=== PATIENT | female | born 1985 | race Caucasian/White ===

== ENCOUNTER 2018-03-06 16:00 | Inpatient (IN) ==
[2018-03-06] MEDS ORDERED: Naloxone Inj 0.4 MG/ML Vial IV.PUSH PRN (16:34)
[2018-03-06] MEDS ORDERED: Sod Chloride 0.9% Inj 1,000 ML IV.CONT PRN (16:34)
[2018-03-06] MEDS ORDERED: Sodium Chlor 0.9% Inj 500 ML IV.SIG PRN (16:34)
[2018-03-06] MEDS ORDERED: Oxytocin 30 Units/500ml Premix 30 UNITS/500 ML BAG IV.SIG ONE (16:34)
[2018-03-06] MEDS ORDERED: fentaNYL Citrate Inj 100 MCG/2 ML Ampul IV.PUSH PRN ×2 (16:34)
[2018-03-06] MEDS ORDERED: Citric Acid/Sodium Citrate Liq 30 ML UDC PO SCH (16:45)
[2018-03-06] MEDS ORDERED: Zolpidem Tartrate 5 MG Tablet PO PRN (17:12)
[2018-03-06 17:17] LABS: Baso % (Auto) 0.4 % (0.0-2.0); Eos # (Auto) 0.1 th/mm3 (0.0-0.4); Hematocrit 36.7 % (35.0-46.0); Hemoglobin 13.4 gm/dL (11.6-15.3); Lymph # (Auto) 1.6 th/mm3 (1.0-4.8); Lymph % (Auto) 18.2 % (9.0-44.0); Mean Corpuscular Hemoglobin 32.7 pg (27.0-34.0); Mean Corpuscular Volume 89.4 fL (80.0-100.0); Mean Platelet Volume 8.1 fL (7.0-11.0); Mono # (Auto) 0.6 th/mm3 (0.0-0.9); Mono % (Auto) 7.1 % (0.0-8.0); Neut # (Auto) 6.4 th/mm3 (1.8-7.7); Neut % (Auto) 73.3 % (16.0-70.0); Platelet Count 181 th/mm3 (150-450); Red Blood Count 4.11 mil/mm3 (4.00-5.30); Red Cell Distribution Width 14.5 % (11.6-17.2); White Blood Count 8.7 th/mm3 (4.0-11.0)
[2018-03-06] MEDS ORDERED: Dextrose 50% in Water 50 ML Vial IV.PUSH PRN (17:25)
[2018-03-06 17:28] LABS: Mean Corpuscular HGB Conc 36.6 % (32.0-36.0)
[2018-03-06 18:05] LABS: Amphetamine Urine With Conf Neg (Neg); Benzodiazepine Urine With Conf Neg (Neg); Cocaine Urine With Conf Neg (Neg); Opiates Urine With Conf Neg (Neg)
[2018-03-06 18:08] LABS: Bacteria,Urine Occasional /hpf; Bilirubin,Urine Negative (Negative); Clarity,Urine Hazy (Clear); Color,Urine Yellow (Yellw/Straw); Glucose,Urine (UA) Negative (Negative); Leukocyte Esterase,Urine Negative (Negative); Mucus,Urine Few /lpf (Occasional); Nitrite,Urine Negative (Negative); Specific Gravity,Urine 1.019 (1.002-1.035); Squamous Epithelial Cell,Urine 8 /hpf (0-5)
[2018-03-06 18:21] LABS: Cannabinoid Urine With Conf Neg (Neg)
[2018-03-06 18:33] LABS: Platelet Estimate Normal (Normal); Platelet Morphology Normal (Normal)
[2018-03-06 20:39] LABS: Alanine Aminotransferase 18 U/L (10-53); Albumin 3.1 g/dL (3.4-5.0); Anion Gap 7 meq/L (5-15); Aspartate Aminotransferase 11 U/L (15-37); Blood Urea Nitrogen 10 mg/dL (7-18); Calcium 8.5 mg/dL (8.5-10.1); Carbon Dioxide 23.3 meq/L (21.0-32.0); Chloride 109 meq/L (98-107); Glomerular Filtration Rate Greater Than 89 mL/min (>89); Glucose,Random 86 mg/dL (74-106); Potassium 3.8 meq/L (3.5-5.1); Sodium 139 meq/L (136-145)
[2018-03-06 20:41] LABS: Alkaline Phosphatase 129 U/L (45-117); Total Protein 7.2 g/dL (6.4-8.2)
[2018-03-06] MEDS ORDERED: Melatonin 5 MG Tablet PO ONE (21:00)
[2018-03-07] MEDS: Insulin NovoLIN Regular Correctional Sugar Inj SQ SCH ×5 (03:20→23:49)
[2018-03-07] MEDS ORDERED: Oxytocin 30 Units/500ml Premix 30 UNITS/500 ML BAG IV.SIG PRN (07:38)
--- NOTE | 2018-03-07 08:33 | P.HPOB ---
History of Present Illness Service: labor Primary Care Physician: NOT REQUIRED Chief Complaint: Possible subtle decelerationn in the diagnostic center History of Present Illness: 33-year-old white female at 39+ weeks. She has been getting testing twice weekly because of her diabetes and dependent on insulin. She had a subtle deceleration in the [facility] and the perinatologist recommended delivery. Her cervix is not yet ripe and we will need to do cervical ripening. Weeks Gestation:: 39 Para: 0 : 1 - Inpatient Certification I certify that the inpatient services were ordered in accordance with Medicare regulations governing the order. This includes certification that hospital inpatient services are reasonable and necessary and in the case of services not specified as inpatient-only under 42 CFR 419.22(n), that they are appropriately provided as inpatient services in accordance to with the 2-midnight benchmark under 43 CFR 412.3(e) Estimated Total Length of Stay (Days): 5 Plans for Post Hospital Care: Home Review of Systems No fevers chills. HEENT no vision changes Chest no shortness of breath Heart no chest pressure or pain GI normal bowel and bladder function no rupture of membranes no bleeding baby is moving well Extremities no swelling or joint pain PMFSH - Medical History Medical History: Medical History (Last Updated 03/07/18 @ 08:27 by Octavio Samaniego MD) Almond teeth extracted (Acute) Overweight (Acute) Anemia (Acute) Gestational diabetes mellitus - Family History Family History: Family History (Last Updated 03/07/18 @ 08:27 by Octavio Samaniego MD) Other Cleft lip - Social History I have reviewed the patient's Social History: Yes - Tobacco History Second Hand Smoke Exposure: No Tobacco Use In Past 30 Days: No - Travel History Recent Travel in the [place] Within the Last 8 Weeks: No Recent Travel Out of the Country Within the Last 8 Weeks: No Medications and Allergies Active Medications: Active Medications Citric Acid/Sodium Citrate (Sodium Citrate/Citric Acid Liq) 30 ml PO PATENT ENGINEER LILIAN Stop: 03/10/18 16:44 Dextrose (D50w Vial) 50 ml IV.PUSH UNSCH PRN PRN Reason: PER HYPOGLYCEMIA PROTOCOL Fentanyl Citrate (Fentanyl Inj) 50 mcg IV.PUSH Q1H PRN PRN Reason: Pain Scale 3 - 5 Fentanyl Citrate (Fentanyl Inj) 100 mcg IV.PUSH Q1H PRN PRN Reason: PAIN SCALE 6 TO 10 Glucagon (Glucagon Inj) 1 mg OTHER PRN PRN PRN Reason: for Hypoglycemia Protocol Lactated Ringer's (Lr 1000 Ml Inj) 1,000 mls @ 125 mls/hr IV.CONT .Q8H [facility] Last Admin: 03/07/18 01:00 Dose: 125 mls/hr Lactated Ringer's (Lr 1000 Ml Inj) 1,000 mls @ 3,000 mls/hr IV.SIG UNSCH PRN PRN Reason: compromise or epidural Sodium Chloride (Ns Inj) 1,000 mls @ 100 mls/hr IV.CONT .Q10H PRN PRN Reason: SEE LABEL COMMENTS Sodium Chloride (Ns Inj) 500 mls @ 1,000 mls/hr IV.SIG UNSCH PRN PRN Reason: SEE LABEL COMMENTS Oxytocin (Pitocin 30 Units/Ns 500 Ml Premix) 30 units in 500 mls @ 2 mls/hr IV.SIG TITRATE PRN; Protocol PRN Reason: For induction of labor Insulin Human Regular (Novolin R Correctional Sugar Inj) 0 units SQ Q4HR [facility]; Protocol Last Admin: 03/07/18 03:20 Dose: 2 units Lidocaine HCl (Xylocaine 1% Inj) 10 ml INFILTRATN PRN PRN PRN Reason: For episiotomy repair Stop: 03/08/18 16:33 Lidocaine HCl (Xylocaine 1% Inj) 0.1 ml I-DERMAL PRN PRN PRN Reason: For IV start Stop: 03/09/18 16:33 Mineral Oil (Muri-Lube Oil) 10 ml TOPICAL PRN PRN PRN Reason: PRN perineal massage Naloxone HCl (Narcan Inj) 0.1 mg IV.PUSH Q2M PRN PRN Reason: for opiate reversal Sodium Chloride (Ns Flush) 2 ml IV.FLUSH BID LILIAN Sodium Chloride (Ns Flush) 2 ml IV.FLUSH PRN PRN PRN Reason: FLUSH AFTER USING IV ACCESS Zolpidem Tartrate (Ambien) 5 mg PO HS PRN PRN Reason: INSOMNIA Allergies Allergy/AdvReac Type Severity Reaction Status Date / Time No Known Allergies Allergy Verified 01/03/18 00:08 Home Medications Medication Instructions Recorded Confirmed Type ferrous sulfate 27 mg PO DAILY 01/03/18 03/06/18 History insulin NPH and regular human 12 unit SUB-Q QAM 01/03/18 03/06/18 History insulin NPH and regular human 35 unit SUB-Q HS 01/03/18 03/06/18 History loratadine [Claritin] 10 mg PO DAILY 01/03/18 03/06/18 History melatonin 3 mg HS 01/03/18 03/06/18 History vit,[id number] 1 tab PO DAILY 03/06/18 03/06/18 History [PNV 29-1] Exam Vital signs: Vital Signs 03/06/18 16:11 03/06/18 16:13 03/06/18 18:00 Temperature 97.7 F Pulse Rate 96 H 79 Respiratory Rate 18 18 Blood Pressure 118/79 118/70 03/06/18 19:10 03/06/18 19:11 03/06/18 19:12 Temperature 98.2 F Pulse Rate 72 Respiratory Rate 18 Blood Pressure 110/57 L 03/06/18 21:36 03/06/18 21:45 03/06/18 22:53 Temperature 97.7 F Pulse Rate 95 H Respiratory Rate 18 Blood Pressure 137/56 L 03/06/18 22:54 03/07/18 02:54 03/07/18 03:00 Temperature 97.9 F Pulse Rate 88 91 H Respiratory Rate 18 Blood Pressure 130/66 92/55 L 03/07/18 06:18 03/07/18 06:19 03/07/18 07:26 Temperature 98.0 F 97.8 F Pulse Rate 83 Respiratory Rate 18 18 Blood Pressure 103/62 03/07/18 07:27 Temperature Pulse Rate 83 Respiratory Rate Blood Pressure 111/59 L Intake & Output 03/06/18 03/07/18 03/07/18 18:59 06:59 18:59 Intake Total 1000 / 1000 Balance 1000 / 1000 Weight 138.532 kg Intake: IV 1000 / 1000 LR 1000 mL Inj 1,000 ML @ 125 1000 / 1000 mls/hr IV.CONT .Q8H [facility] Rx#: [id number] Other: Weight On Admission 138.346 kg - Constitutional no acute distress, obese - Routine HEENT Exam Head: Present: normocephalic, atraumatic - Routine Neck Exam Present: supple - Routine Respiratory Exam Present: CTA bilaterally - Routine Cardiovascular Exam Present: RRR, S1, S2 - Routine Abdominal Exam Present: soft, normoactive bowel sounds, distended - Routine Exam External: Present: normal urethra appearance (Cx is fingertip/50%/posterior/soft ) - Routine Skin Exam Present: intact - Routine Neurological Exam Present: alert, oriented X3 Results - Labs CBC & Chem 7: 03/06/18 16:45 03/06/18 16:45 Labs: Laboratory Results - last 24 hr 03/06/18 03/06/18 03/06/18 16:45 16:45 16:45 WBC 8.7 RBC 4.11 Hgb 13.4 Hct 36.7 MCV 89.4 MCH 32.7 MCHC 36.6 H RDW 14.5 Plt Count 181 MPV 8.1 Prelim Diff (Auto) Slide review pending Neut % (Auto) 73.3 H Lymph % (Auto) 18.2 [place] % (Auto) 7.1 Eos % (Auto) 1.0 Baso % (Auto) 0.4 Neut # (Auto) 6.4 Lymph # (Auto) 1.6 [place] # (Auto) 0.6 Eos # (Auto) 0.1 Baso # (Auto) 0.0 WBC Differential . Diff Scan Auto diff confirmed Differential Comment . Platelet Estimate Normal Platelet Morphology Normal Sodium Potassium Chloride Carbon Dioxide Anion Gap BUN Creatinine Estimated GFR POC Glucose Random Glucose Calcium Total Bilirubin AST ALT Alkaline Phosphatase Total Protein Albumin Urine Color Urine Clarity Urine pH Ur Specific [place] Urine Protein Urine Glucose (UA) Urine Ketones Urine Occult Blood Urine Nitrate Urine Bilirubin Urine Urobilinogen Ur Leukocyte Esterase Urine RBC Urine WBC Ur Squamous Epith Cells Urine Bacteria Urine Mucus Micro UA Comment Ur Microscopic Review Urine Culture Comments Urine Opiates Screen Neg Ur Barbiturates Screen Neg Ur Amphetamine Screen Neg U Benzodiazepines Scrn Neg Urine Cocaine Screen Neg U Cannabinoids Screen Neg Blood Type O Positive Blood Type Recheck Required 03/06/18 03/06/18 03/06/18 16:45 16:45 21:41 WBC RBC Hgb Hct MCV MCH MCHC RDW Plt Count MPV Prelim Diff (Auto) Neut % (Auto) Lymph % (Auto) [place] % (Auto) Eos % (Auto) Baso % (Auto) Neut # (Auto) Lymph # (Auto) [place] # (Auto) Eos # (Auto) Baso # (Auto) WBC Differential Diff Scan Differential Comment Platelet Estimate Platelet Morphology Sodium 139 Potassium 3.8 Chloride 109 H Carbon Dioxide 23.3 Anion Gap 7 BUN 10 Creatinine 0.60 Estimated GFR Greater than 89 POC Glucose 129 H Random Glucose 86 Calcium 8.5 Total Bilirubin 0.2 AST 11 L ALT 18 Alkaline Phosphatase 129 H Total Protein 7.2 Albumin 3.1 L Urine Color Yellow Urine Clarity Hazy H Urine pH 6.0 Ur Specific [place] 1.019 Urine Protein Negative Urine Glucose (UA) Negative Urine Ketones Negative Urine Occult Blood Negative Urine Nitrate Negative Urine Bilirubin Negative Urine Urobilinogen Less than 2 Ur Leukocyte Esterase Negative Urine RBC Less than 1 Urine WBC 2 Ur Squamous Epith Cells 8 Urine Bacteria Occasional H Urine Mucus Few H Micro UA Comment Culture not ind Ur Microscopic Review Not Reportable Urine Culture Comments Culture not ind Urine Opiates Screen Ur Barbiturates Screen Ur Amphetamine Screen U Benzodiazepines Scrn Urine Cocaine Screen U Cannabinoids Screen Blood Type Blood Type Recheck 03/07/18 03/07/18 02:56 07:15 WBC RBC Hgb Hct MCV MCH MCHC RDW Plt Count MPV Prelim Diff (Auto) Neut % (Auto) Lymph % (Auto) [place] % (Auto) Eos % (Auto) Baso % (Auto) Neut # (Auto) Lymph # (Auto) [place] # (Auto) Eos # (Auto) Baso # (Auto) WBC Differential Diff Scan Differential Comment Platelet Estimate Platelet Morphology Sodium Potassium Chloride Carbon Dioxide Anion Gap BUN Creatinine Estimated GFR POC Glucose 153 H 82 Random Glucose Calcium Total Bilirubin AST ALT Alkaline Phosphatase Total Protein Albumin Urine Color Urine Clarity Urine pH Ur Specific [place] Urine Protein Urine Glucose (UA) Urine Ketones Urine Occult Blood Urine Nitrate Urine Bilirubin Urine Urobilinogen Ur Leukocyte Esterase Urine RBC Urine WBC Ur Squamous Epith Cells Urine Bacteria Urine Mucus Micro UA Comment Ur Microscopic Review Urine Culture Comments Urine Opiates Screen Ur Barbiturates Screen Ur Amphetamine Screen U Benzodiazepines Scrn Urine Cocaine Screen U Cannabinoids Screen Blood Type Blood Type Recheck Group B Strep: Negative Caprini VTE Risk Assessment Caprini VTE Risk Assessment: No/Low Risk (score <= 1) Caprini Risk Assessment Model: Point Value = 1 Point Value = 2 Point Value = 3 Point Value = 5 Age 41-60 Minor surgery BMI > 25 kg/m2 Swollen legs Varicose veins or History of unexplained or recurrent spontaneous Oral contraceptives or hormone replacement Sepsis (< 1 month) Serious lung disease, including pneumonia (< 1 month) Abnormal pulmonary function Acute myocardial infarction Congestive heart failure (< 1 month) History of inflammatory bowel disease Medical patient at bed rest Age 61-74 Arthroscopic surgery Major open surgery (> 45 min) Laparoscopic surgery (> 45 min) Malignancy Confined to bed (> 72 hours) Immobilizing plaster cast Central venous access Age >= 75 History of VTE Family history of VTE Factor V Leiden Prothrombin [id number] Lupus anticoagulant Anticardiolipin antibodies Elevated serum homocysteine Heparin-induced thrombocytopenia Other congenital or acquired thrombophilia Stroke (< 1 month) Elective arthroplasty Hip, pelvis, or leg fracture Acute spinal cord injury (< 1 month) Prophylaxis Regimen: Total Risk Factor Score Risk Level Prophylaxis Regimen 0-1 Low Early ambulation 2 Moderate Order ONE of the following: *Sequential Compression Device (SCD) *Heparin 5000 units SQ BID 3-4 Higher Order ONE of the following medications: *Heparin 5000 units SQ TID *Enoxaparin/Lovenox 40 mg SQ daily (WT < 150 kg, CrCl > 30 mL/min) *Enoxaparin/Lovenox 30 mg SQ daily (WT < 150 kg, CrCl > 10-29 mL/min) *Enoxaparin/Lovenox 30 mg SQ BID (WT < 150 kg, CrCl > 30 mL/min) AND/OR *Sequential Compression Device (SCD) 5 or more Highest Order ONE of the following medications: *Heparin 5000 units SQ TID (Preferred with Epidurals) *Enoxaparin/Lovenox 40 mg SQ daily (WT < 150 kg, CrCl > 30 mL/min) *Enoxaparin/Lovenox 30 mg SQ daily (WT < 150 kg, CrCl > 10-29 mL/min) *Enoxaparin/Lovenox 30 mg SQ BID (WT < 150 kg, CrCl > 30 mL/min) AND *Sequential Compression Device (SCD) Assessment and Plan - Plan 1. Uterine at 39 weeks 2. Gestational diabetes on insulin she is currently on 35 units in the evening and 12 units in the morning we will be following her blood sugar through labor and take her blood sugar every 4 hours or more if needed and put her on a sliding scale of regular insulin. We will also inform the pediatric team of the patient's condition. 3. Size greater than dates recent ultrasound revealed a baby weighing 3800 g. We have discussed primary and the patient desires to have a vaginal . Because of her size is very difficult to estimate the weight clinically. 4. Overweight. We will deal this after the baby arrives 5. Negative GBS The plan is to admit her start her on IV fluids to increase the perfusion of the placenta and then give her Cervidil tonight as I would rather not use Cytotec as this more difficult to remove and sometimes it can cause distress. Then we will start Pitocin in the morning I warned the patient and her that this may be a 2 or 3-day induction and it may not work and she may end up with a regardless. They understand the plan and are agreeing to proceed
--- NOTE | 2018-03-07 11:30 | P.PN ---
Subjective Interval history: [facility] Attending The patient is a with IUP at 39.3. Her care has been with Dr. Ayon but she has requested to be cared for by OB for her induction and delivery. The patient's care has been complicated by morbid obesity, resolved polyhydramnios, and A2 diabetes. Her home regimen of insulin is NPH 12 units in the am and 35 units in the pm. She reports her sugars have been well controlled. An ultrasound performed on 03/02/18 revealed a fetus in the cephalic presentation with estimated weight of 3802 g, which is in the 74th percentile. The HC is 84th percentile and AC is 72nd percentile. She was sent for induction from [facility] yesterday due to a possible deceleration and an induction was initiated by Dr. Ayon. She received cervadil overnight and is now on low-dose oxytocin. The patient was counseled extensively on acceptance of transfer of care. We discussed the risks of vaginal delivery and the risks of delivery. We had an extensive discussion about the risk of shoulder dystocia due to her history of A2 diabetes and a fetus that had an estimated weight on 03/02/18 of 3802 g which may result in a fetus of > 4000 g at this time. We discussed that a delivery is recommended for an estimated weight of greater than 4500 g, however she does not meet this criteria. We discussed the limitations to ultrasound estimation of weight that may be off by 15% which may mean the fetus is larger than expected. We discussed risks of shoulder dystocia that include but are not limited to maternal injury, as well as permanent and irreversible neurologic injury, brain damage, and/or . We discussed that there is a risk of brachial plexus injury that may be permanent or may resolve over time. We discussed other risks of shoulder dystocia including fractured clavicle and/or fractured humerus but these typically heal without complication. We discussed there is a risk of / and hypoxic ischemic encephalopathy. Based on the literature, the risk of shoulder dystocia is approximately 15% if the fetus weighs greater than 4500 g in a patient with diabetes. We discussed that if there is a shoulder dystocia, the risk of permanent injury is about 5% or less. We discussed that while the risk is low, she could be one of the patients with these serious complications and sequelae. We discussed there is a high risk of shoulder dystocia if she has a prolonged second stage and needs an operative vaginal delivery. We discussed that operative delivery would be ultimately decided by the delivering physician but as noted can increase her risk of shoulder dystocia and related sequelae. We discussed the risk of delivery that include but are not limited to pain, infection, bleeding , injury to other organs like the bladder/bowel/nerves/vessels, injury to the baby, need for repeat operation, need for hysterectomy, need for blood transfusion, wound infection and breakdown. We discussed that her risks of infection specifically but also other surgical and associated risks are higher due to her diabetes and morbid obesity. We discussed that she may elect for primary delivery if she desires and she refused. The patient states she wants to try for a vaginal delivery. She and her are both aware of the risks of shoulder dystocia as well as the risks associated that may include permanent and irreversible neurological injury, brain damage, and to the fetus/. The patient is in agreement with continuing with induction of labor. She is received Cervidil overnight and is on low-dose oxytocin at this time for cervical ripening. Her examination is /-3/posterior/firm. We discussed the risks, benefits, and alternatives to methods of induction including oxytocin, Cervidil, and Cytotec. We discussed that while Cytotec works faster, we need to ensure adequate monitoring of contractions and heart tones which may be difficult due to her habitus. We discussed the risks of Cytotec include that it is not removable and would require additional medication should the fetus not tolerate the medication. We discussed that Cervidil works slower but may be removed. The patient is aware that this may be a multiple day induction of labor, possibly even 2-3 days or longer. Patient states she wants an induction that would ideally minimize the use of oxytocin and that is as gentle and natural as possible. The patient prefers further cervical ripening with Cervidil. We discussed that a delivery would be indicated for nonreassuring status, the inability to get the patient into labor, or labor arrest/protraction disorders. The patient is in agreement with delivery should it be medically indicated. All the patient's questions were answered at length. We will proceed with the plan of induction of labor as per [facility]. We will reassess her cervical exam later this afternoon. If there has been no significant change in her cervical examination after oxytocin, we will place another Cervidil. We discussed monitoring and the limitations of such. We discussed the limitations related to external monitoring. We discussed the benefits and risks of internal monitoring. We discussed that scalpel electrode carries with it a very small risk of infection but this is continuous [id number] information about the baby's heart rate and can be useful since external monitoring may be challenging with her habitus. We discussed the potential benefits of intrauterine pressure catheter which can allow more accurate assessment of the strength and adequacy of her contractions and improve the safety of the use of oxytocin. We will also check a HgbA1C level. The patient and her had an opportunity to ask any further questions and had no further questions or concerns at this time. FHR reassuring at this time. Physical Exam Vital signs: Vital Signs 03/06/18 16:11 03/06/18 16:13 03/06/18 18:00 Temperature 97.7 F Pulse Rate 96 H 79 Respiratory Rate 18 18 Blood Pressure 118/79 118/70 03/06/18 19:10 03/06/18 19:11 03/06/18 19:12 Temperature 98.2 F Pulse Rate 72 Respiratory Rate 18 Blood Pressure 110/57 L 03/06/18 21:36 03/06/18 21:45 03/06/18 22:53 Temperature 97.7 F Pulse Rate 95 H Respiratory Rate 18 Blood Pressure 137/56 L 03/06/18 22:54 03/07/18 02:54 03/07/18 03:00 Temperature 97.9 F Pulse Rate 88 91 H Respiratory Rate 18 Blood Pressure 130/66 92/55 L 03/07/18 06:18 03/07/18 06:19 03/07/18 07:26 Temperature 98.0 F 97.8 F Pulse Rate 83 Respiratory Rate 18 18 Blood Pressure 103/62 03/07/18 07:27 03/07/18 08:53 03/07/18 09:00 Temperature Pulse Rate 83 89 Respiratory Rate 18 Blood Pressure 111/59 L 117/69 Intake & Output 03/06/18 03/07/18 03/07/18 18:59 06:59 18:59 Intake Total 1000 / 1000 Balance 1000 / 1000 Weight 138.532 kg Intake: IV 1000 / 1000 LR 1000 mL Inj 1,000 ML @ 125 1000 / 1000 mls/hr IV.CONT .Q8H [facility] Rx#: [id number] Other: Weight On Admission 138.346 kg Results - Labs CBC & Chem 7: 03/06/18 16:45 03/06/18 16:45 Laboratory Results - last 24 hr 03/06/18 03/06/18 03/06/18 16:45 16:45 16:45 WBC 8.7 RBC 4.11 Hgb 13.4 Hct 36.7 MCV 89.4 MCH 32.7 MCHC 36.6 H RDW 14.5 Plt Count 181 MPV 8.1 Prelim Diff (Auto) Slide review pending Neut % (Auto) 73.3 H Lymph % (Auto) 18.2 [place] % (Auto) 7.1 Eos % (Auto) 1.0 Baso % (Auto) 0.4 Neut # (Auto) 6.4 Lymph # (Auto) 1.6 [place] # (Auto) 0.6 Eos # (Auto) 0.1 Baso # (Auto) 0.0 WBC Differential . Diff Scan Auto diff confirmed Differential Comment . Platelet Estimate Normal Platelet Morphology Normal Sodium Potassium Chloride Carbon Dioxide Anion Gap BUN Creatinine Estimated GFR POC Glucose Random Glucose Calcium Total Bilirubin AST ALT Alkaline Phosphatase Total Protein Albumin Urine Color Urine Clarity Urine pH Ur Specific [place] Urine Protein Urine Glucose (UA) Urine Ketones Urine Occult Blood Urine Nitrate Urine Bilirubin Urine Urobilinogen Ur Leukocyte Esterase Urine RBC Urine WBC Ur Squamous Epith Cells Urine Bacteria Urine Mucus Micro UA Comment Ur Microscopic Review Urine Culture Comments Urine Opiates Screen Neg Ur Barbiturates Screen Neg Ur Amphetamine Screen Neg U Benzodiazepines Scrn Neg Urine Cocaine Screen Neg U Cannabinoids Screen Neg Blood Type O Positive Blood Type Recheck Required 03/06/18 03/06/18 03/06/18 16:45 16:45 21:41 WBC RBC Hgb Hct MCV MCH MCHC RDW Plt Count MPV Prelim Diff (Auto) Neut % (Auto) Lymph % (Auto) [place] % (Auto) Eos % (Auto) Baso % (Auto) Neut # (Auto) Lymph # (Auto) [place] # (Auto) Eos # (Auto) Baso # (Auto) WBC Differential Diff Scan Differential Comment Platelet Estimate Platelet Morphology Sodium 139 Potassium 3.8 Chloride 109 H Carbon Dioxide 23.3 Anion Gap 7 BUN 10 Creatinine 0.60 Estimated GFR Greater than 89 POC Glucose 129 H Random Glucose 86 Calcium 8.5 Total Bilirubin 0.2 AST 11 L ALT 18 Alkaline Phosphatase 129 H Total Protein 7.2 Albumin 3.1 L Urine Color Yellow Urine Clarity Hazy H Urine pH 6.0 Ur Specific [place] 1.019 Urine Protein Negative Urine Glucose (UA) Negative Urine Ketones Negative Urine Occult Blood Negative Urine Nitrate Negative Urine Bilirubin Negative Urine Urobilinogen Less than 2 Ur Leukocyte Esterase Negative Urine RBC Less than 1 Urine WBC 2 Ur Squamous Epith Cells 8 Urine Bacteria Occasional H Urine Mucus Few H Micro UA Comment Culture not ind Ur Microscopic Review Not Reportable Urine Culture Comments Culture not ind Urine Opiates Screen Ur Barbiturates Screen Ur Amphetamine Screen U Benzodiazepines Scrn Urine Cocaine Screen U Cannabinoids Screen Blood Type Blood Type Recheck 03/07/18 03/07/18 02:56 07:15 WBC RBC Hgb Hct MCV MCH MCHC RDW Plt Count MPV Prelim Diff (Auto) Neut % (Auto) Lymph % (Auto) [place] % (Auto) Eos % (Auto) Baso % (Auto) Neut # (Auto) Lymph # (Auto) [place] # (Auto) Eos # (Auto) Baso # (Auto) WBC Differential Diff Scan Differential Comment Platelet Estimate Platelet Morphology Sodium Potassium Chloride Carbon Dioxide Anion Gap BUN Creatinine Estimated GFR POC Glucose 153 H 82 Random Glucose Calcium Total Bilirubin AST ALT Alkaline Phosphatase Total Protein Albumin Urine Color Urine Clarity Urine pH Ur Specific [place] Urine Protein Urine Glucose (UA) Urine Ketones Urine Occult Blood Urine Nitrate Urine Bilirubin Urine Urobilinogen Ur Leukocyte Esterase Urine RBC Urine WBC Ur Squamous Epith Cells Urine Bacteria Urine Mucus Micro UA Comment Ur Microscopic Review Urine Culture Comments Urine Opiates Screen Ur Barbiturates Screen Ur Amphetamine Screen U Benzodiazepines Scrn Urine Cocaine Screen U Cannabinoids Screen Blood Type Blood Type Recheck
[2018-03-07 15:48] LABS: Hemoglobin A1c 5.2 % (4.3-6.0)
--- NOTE | 2018-03-07 20:26 | P.PN ---
Subjective Interval history: [facility] Progress Note Patient received about 8 hours of low-dose oxytocin which was discontinued. She was able to be refreshed with a meal and is willing to continue induction of labor. Her vaginal examination is unchanged. FHR reassuring and reactive. Cervidil placed about 2000 without difficulty. All of the patient and her 's questions were answered. Physical Exam Vital signs: Vital Signs 03/06/18 21:36 03/06/18 21:45 03/06/18 22:53 Temperature 97.7 F Pulse Rate 95 H Respiratory Rate 18 Blood Pressure 137/56 L 03/06/18 22:54 03/07/18 02:54 03/07/18 03:00 Temperature 97.9 F Pulse Rate 88 91 H Respiratory Rate 18 Blood Pressure 130/66 92/55 L 03/07/18 06:18 03/07/18 06:19 03/07/18 07:26 Temperature 98.0 F 97.8 F Pulse Rate 83 Respiratory Rate 18 18 Blood Pressure 103/62 03/07/18 07:27 03/07/18 08:53 03/07/18 09:00 Temperature Pulse Rate 83 89 Respiratory Rate 18 Blood Pressure 111/59 L 117/69 03/07/18 12:30 03/07/18 16:19 03/07/18 16:30 Temperature 97.9 F 97.8 F Pulse Rate 90 86 Respiratory Rate 18 18 Blood Pressure 105/70 109/67 03/07/18 17:51 03/07/18 19:20 03/07/18 19:23 Temperature 99.9 F H Pulse Rate 103 H Respiratory Rate 18 18 Blood Pressure 102/80 Intake & Output 03/07/18 03/07/18 03/08/18 06:59 18:59 06:59 Intake Total 1000 / 1000 1000 / 1000 1000 / 1000 Balance 1000 / 1000 1000 / 1000 1000 / 1000 Intake: IV 1000 / 1000 1000 / 1000 1000 / 1000 LR 1000 mL Inj 1,000 ML @ 125 1000 / 1000 1000 / 1000 1000 / 1000 mls/hr IV.CONT .Q8H [facility] Rx#: [id number] Results - Labs CBC & Chem 7: 03/06/18 16:45 03/06/18 16:45 Laboratory Results - last 24 hr 03/06/18 03/06/18 03/06/18 16:45 16:45 21:41 Sodium 139 Potassium 3.8 Chloride 109 H Carbon Dioxide 23.3 Anion Gap 7 BUN 10 Creatinine 0.60 Estimated GFR Greater than 89 POC Glucose 129 H Random Glucose 86 Hemoglobin A1c 5.2 Calcium 8.5 Total Bilirubin 0.2 AST 11 L ALT 18 Alkaline Phosphatase 129 H Total Protein 7.2 Albumin 3.1 L 03/07/18 03/07/18 03/07/18 02:56 07:15 11:22 Sodium Potassium Chloride Carbon Dioxide Anion Gap BUN Creatinine Estimated GFR POC Glucose 153 H 82 124 H Random Glucose Hemoglobin A1c Calcium Total Bilirubin AST ALT Alkaline Phosphatase Total Protein Albumin 03/07/18 03/07/18 15:37 19:00 Sodium Potassium Chloride Carbon Dioxide Anion Gap BUN Creatinine Estimated GFR POC Glucose 79 129 H Random Glucose Hemoglobin A1c Calcium Total Bilirubin AST ALT Alkaline Phosphatase Total Protein Albumin
[2018-03-07] MEDS: Melatonin 5 MG Tablet PO PRN (22:36)
[2018-03-08] MEDS: Insulin NovoLIN Regular Correctional Sugar Inj SQ SCH ×5 (02:39→20:02)
[2018-03-08] MEDS ORDERED: Oxytocin 30 Units/500ml Premix 30 UNITS/500 ML BAG IV.CONT PRN (15:26)
--- NOTE | 2018-03-08 15:29 | P.OBGPN ---
Patient seen and evaluated. No cervical progression noted from SROM or AROM of forebag. Note with AROM of 4 bag copious amounts of fluid approximately 500 cc of amniotic fluid present consistent with polyhydramnios. I was able to place an IUPC but and able to place an FSE secondary to the copious amount of fluids but since artificial rupture of membranes the heart rate now is monitored without incident. The patient and her would like a minimalistic approach they were made aware however with prolonged rupture of membranes increased maternal as well as morbidity and mortality. I have offered to start oxytocin to help facilitate patient going into active labor and they will consider their options.
[2018-03-08] MEDS ORDERED: fentaNYL 2MCG-Bupiv 0.125% Epi 150 ML EPIDURAL ONE (20:57)
[2018-03-08] MEDS ORDERED: Lidocaine 2%/Epinephrine 1:200,000 PF 10 ML SDV ONE (21:06)
[2018-03-08] MEDS ORDERED: fentaNYL Citrate Inj 100 MCG/2 ML Ampul EPIDURAL ONE (21:47)
[2018-03-08] MEDS ORDERED: fentaNYL 2MCG-Bupiv 0.125% Epi 150 ML EPIDURAL PRN (21:47)
[2018-03-08] MEDS ORDERED: Penicillin G Potassium Inj 5,000,000 UNIT in Sodium Chloride 0.9% Inj 100 ML IV.SIG ONE (23:26)
--- NOTE | 2018-03-08 23:32 | P.OBGPN ---
Patient seen and evaluated. VE unchanged 5 cm 70-80% effaced -[address]. Maternal status are reassuring contractions are noted to be adequate with IUPC in [facility] [place] units 300. Discussed with patient and her partner at this time approaching 18 hours of ruptured membranes although GBS status is negative recommendations to start antibiotics-they are not opposed. Was counseled of possibility if no further cervical progression once she reaches 6 cm to proceed with delivery. At this time not unreasonable to wait patient is morbidly obese and she would have a difficult time with recovery but they were also made aware there is a possibility with an LGA infant of brachial plexus injury shoulder dystocia they expressed verbal understanding.
--- NOTE | 2018-03-09 01:19 | P.OBGPN ---
Preop note- VE unchanged with exam and persistent asynclitic presentation. Alternatives/ benefits / complications - advised delivery. Both pt and want "time to think about it.'
[2018-03-09] MEDS ORDERED: SODIUM CHLOR 0.9% IV.SIG ONE (01:20)
[2018-03-09] MEDS ORDERED: Oxytocin 30 Units/500ml Premix 30 UNITS/500 ML BAG IV.SIG ONE (01:20)
[2018-03-09] MEDS ORDERED: ERYTHROMYCIN IV.SIG ONE (01:20)
[2018-03-09] MEDS ORDERED: ceFAZolin Inj 3,000 MG in Sodium Chlor 0.9% Inj 100 ML IV.SIG SCH (01:23)
[2018-03-09] MEDS ORDERED: Citric Acid/Sodium Citrate Liq 30 ML UDC PO SCH (01:30)
[2018-03-09] MEDS ORDERED: Azithromycin Inj 500 MG in Sodium Chlor 0.9% Inj 250 ML IV.SIG ONE (02:00)
[2018-03-09] MEDS ORDERED: Morphine Sulfate PF Inj 5 MG/10 ML Ampul ONE (02:14)
[2018-03-09] MEDS ORDERED: Phenylephrine/NS 1000 MCG/10ML Syringe IV.PUSH ONE (02:16)
[2018-03-09] MEDS ORDERED: ceFAZolin 1 GM Premix Inj 1 GM/50 ML FROZ.PIGGY IV.SIG ONE (02:16)
[2018-03-09] MEDS ORDERED: fentaNYL Citrate Inj 100 MCG/2 ML Ampul ONE (03:31)
[2018-03-09] MEDS ORDERED: Ketamine Inj 50 MG/5 ML Syringe IV.PUSH ONE (03:37)
[2018-03-09] MEDS: Insulin NovoLIN Regular Correctional Sugar Inj SQ SCH (04:24)
[2018-03-09 05:24] LABS: Cord Arterial Blood HCO3 23.6
[2018-03-09] MEDS ORDERED: Oxytocin 30 Units/500ml Premix 30 UNITS/500 ML BAG IV.SIG PRN (06:20)
--- NOTE | 2018-03-09 06:27 | P.OP ---
- Preoperative Diagnosis (1) Failed induction of labor, delivered (2) CPD (cephalo-pelvic disproportion) (3) Morbid obesity (4) Gestational diabetes - Postoperative Diagnosis (1) Prolapsed cord affecting fetus or (2) Thick meconium stained amniotic fluid Date of procedure: 03/09/18 Procedure: Low uterine transverse section Anesthesia: spinal, epidural Surgeon: Zamzam Cole MD Estimated blood loss (mL): 1,000 Operation and Findings: Patient and her partner were counseled extensively. Indication for delivery failed induction asynclitic presentation consistent with cephalic pelvic disproportion. Alternatives benefits complications including but not limited to risk of permanent injury to the bowel bladder nerve blood vessels ureters any structures in abdomen or pelvis infection hemorrhage morbidity mortality related to the surgery under anesthesia related procedures even remote possibility of infection hemorrhage reoperation risk patient and partner expressed verbal understanding and subsequently agreed to proceed. She had received penicillin G secondary to prolonged rupture of membranes greater than 18 hours however for Intra-Op prophylaxis received cefazolin 3 g and azithromycin IV 500 mg. She had an epidural catheter which was in place noted to be suboptimal and subsequently replaced with spinal which was noted to be optimal prepped and draped in normal sterile fashion note that timeout was called. A Pfannenstiel incision was made through the skin however note multiple layers of subcutaneous fat obstructing and thereby making it surgically and technically difficult to proceed to the fascia at this time I had 2 assistants and had to call for a third assistant professor of surgery use of an Francisco retractor secondary to patient's morbid body habitus. Once finally the fascia was identified by blunt sharp dissection and frankie was made in the midline and extended laterally using curved Lombardi scissors performed on both sides. The superior aspect of the fascia was bluntly dissected off under coping machine operator lying rectus muscle the inferior aspect which was also grasped with Eddi clamps x2 dissected off bluntly from the underlying rectus muscle rectus muscle was subsequently blunt entrance into the peritoneum with care to avoid the bladder. Patient has a very large omentum primarily due to body habitus and excess fat. The omentum subsequently to be able to access the lower uterine segment was displaced into the right upper quadrant just below the liver edge. Vesicouterine peritoneum after Francisco retractor was placed the bladder flap was created in a sharp fashion with a blade subsequently bladder blade was repositioned transverse incision on the uterus was which was extended with bandage scissors on note patient's membranes had been ruptured clear throughout the labor process and noted to be subsequently thick fresh meconium as well as now the cord was presenting this is a new finding she had been examined just before she had presented to the OR although asynclitic no cord was palpable before hand. Delivery of the vertex was challenging secondary to the maternal body habitus the anesthesiologist did administer nitrous oxide however there was significant difficulty in achieving delivery of the vertex. Attempt to reposition the cord however suboptimal secondary to once again limitations of the body habitus. At this time in order to affect a safe delivery for the proceeded to transect the maternal rectus muscles the incision had already been large and wide enough. Once the rectus muscles were transected partially with keratin for to avoid the inferior epigastric proceeded to deliver the vertex-subsequently delivered without incident on note once the baby was delivered appeared to be floppy and subsequently the NICU team was present to assume immediate care for the delayed cord clamping was deferred. A viable infant female was delivered Apgars 5 and then subsequently 9 and explained to the parents en route to the NICU. The cord blood was collected the placenta was manually removed the uterus was externalized cleared of all clot and debris note uterine at anatomy within normal no adnexal masses are present no mass of the anterior posterior cul-de- sac present. Proceeded to close the lower uterine segment with 1 chromic in a continuous fashion starting from the patient's right to the midpoint and then subsequently to the left to the midpoint a second imbricating Lembert suture continuous throughout with periodic figure of eights placed with good hemostasis noted. Once hemostasis was assured the uterus was repositioned in the pelvic abdominal cavity clots and debris were cleared. The omentum was repositioned back into the pelvic abdominal cavity. Note it took some time to reevaluate the lower uterine segment once again secondary to the massive amount of fat intra-abdominal trying to displace the fat but eventually were was able to evaluate and hemostasis was reassured. Once the incision was noted to be hemostatic the rectus muscles which were transected were reapproximated with 2 [id number] this was performed on both sides with good hemostasis noted. The fascia was identified and closed with 1 chromic in a running fashion. Copious irrigation of the subcutaneous fat note the campers and Pa's fascia were closed with an interrupted chromic in a continuous fashion. The skin was subsequently closed with 1 Monocryl on a Og needle in its entirety. Patient tolerated procedure well sponge lap needle counts were correct x2 patient taken to recovery room in stable condition baby in route to NICU.
[2018-03-09] MEDS: Penicillin G Potassium Inj 2,500,000 UNIT in Sodium Chlor 0.9% Inj 100 ML IV.SIG SCH (18:42)
[2018-03-10 05:59] LABS: Baso % (Auto) 0.1 % (0.0-2.0); Eos % (Auto) 0.3 % (0.0-4.0); Hematocrit 29.3 % (35.0-46.0); Hemoglobin 10.4 gm/dL (11.6-15.3); Lymph # (Auto) 1.5 th/mm3 (1.0-4.8); Mean Corpuscular HGB Conc 35.4 % (32.0-36.0); Mean Corpuscular Hemoglobin 31.4 pg (27.0-34.0); Mean Corpuscular Volume 88.8 fL (80.0-100.0); Mean Platelet Volume 7.5 fL (7.0-11.0); Mono % (Auto) 7.9 % (0.0-8.0); Neut # (Auto) 9.6 th/mm3 (1.8-7.7); Neut % (Auto) 79.7 % (16.0-70.0); Platelet Count 159 th/mm3 (150-450); Red Cell Distribution Width 14.4 % (11.6-17.2); White Blood Count 12.1 th/mm3 (4.0-11.0)
[2018-03-10 06:21] LABS: Anion Gap 7 meq/L (5-15); Blood Urea Nitrogen 7 mg/dL (7-18); Calcium 8.4 mg/dL (8.5-10.1); Carbon Dioxide 25.1 meq/L (21.0-32.0); Chloride 108 meq/L (98-107); Glomerular Filtration Rate Greater Than 89 mL/min (>89); Glucose,Fasting 111 mg/dL (74-99); Glucose,Random 111 mg/dL (74-106); Potassium 3.6 meq/L (3.5-5.1); Sodium 140 meq/L (136-145)
--- NOTE | 2018-03-10 08:50 | P.PNOB ---
Subjective Post op day: 1 Interval history: Postoperative day number 1. AFVSS overnight. Pain well-controlled on Motrin. Pt states that she does not want to take any opioid medication due to fear of the potential for addiction. Incision not draining. Decreased lochia. Denies dysuria. No breast tenderness. She is feeding the baby via breast/pumping. Appetite good. No nausea or vomiting. No flatus. No bowel movement. Ambulating well. Denies calf pain, shortness of breath, or cough. Otherwise, she is doing well this morning and has no other complaints. Objective Vital Signs/I&O: Vital Signs 03/09/18 12:50 03/09/18 20:00 03/10/18 00:00 Temperature 97.6 F 98.4 F 98.3 F Pulse Rate 103 H 107 H 83 Respiratory Rate 20 20 16 Blood Pressure 112/65 87/59 L 97/61 L Result Diagrams: 03/10/18 05:50 03/10/18 05:50 Objective Remarks: GENERAL: Well-nourished, well-developed patient. CARDIOVASCULAR: Regular rate and rhythm without murmurs, gallops, or rubs. RESPIRATORY: Breath sounds equal bilaterally. No accessory muscle use. ABDOMEN/GI: Abdomen soft, non-tender, bowel sounds present. Incision: Clean, dry and intact. Fundus: Firm, non-tender at umbilicus. GENITOURINARY: Light to moderate bleeding. EXTREMITIES: No cyanosis or edema, non-tender, without signs of DVT. Medications and IVs: Active Medications Citric Acid/Sodium Citrate (Sodium Citrate/Citric Acid Liq) 30 ml PO [facility] Stop: 03/13/18 01:29 Dextrose (D50w Vial) 50 ml IV.PUSH UNSCH PRN PRN Reason: PER HYPOGLYCEMIA PROTOCOL Diphtheria/Pertussis/Tetanus Vacc (Boostrix Vaccine Inj) 0.5 ml IM .ONCE ONE Stop: 03/10/18 16:01 Glucagon (Glucagon Inj) 1 mg OTHER PRN PRN PRN Reason: for Hypoglycemia Protocol Oxytocin (Pitocin 30 Units/Ns 500 Ml Premix) 30 units in 500 mls @ 100 mls/hr IV.SIG UNSCH PRN PRN Reason: Heavy bleeding Ibuprofen (Motrin) 800 mg PO Q6H PRN PRN Reason: PAIN 1-2 AND/OR FEVER >101F Last Admin: 03/10/18 05:37 Dose: 800 mg Measles/Mumps/Rubella Vaccine Live (M-M-R Ii Vaccine Inj) 0.5 ml SQ .ONCE ONE Stop: 03/10/18 16:01 Melatonin (Melatonin) 5 mg PO HS PRN PRN Reason: SLEEP Last Admin: 03/07/18 22:36 Dose: 5 mg Oxycodone/Acetaminophen (Percocet 5/325 Mg) 1 tab PO Q4H PRN PRN Reason: PAIN SCALE 3 TO 5 Oxycodone/Acetaminophen (Percocet 5/325 Mg) 2 tab PO Q4H PRN PRN Reason: PAIN SCALE 6 TO 10 Sodium Chloride (Ns Flush) 2 ml IV.FLUSH BID [facility] Last Admin: 03/09/18 22:50 Dose: Not Given Sodium Chloride (Ns Flush) 2 ml IV.FLUSH PRN PRN PRN Reason: FLUSH AFTER USING IV ACCESS Sodium Chloride (Ns Flush) 2 ml IV.FLUSH BID [facility] Last Admin: 03/09/18 22:50 Dose: Not Given Sodium Chloride (Ns Flush) 2 ml IV.FLUSH PRN PRN PRN Reason: FLUSH AFTER USING IV ACCESS Zolpidem Tartrate (Ambien) 5 mg PO HS PRN PRN Reason: INSOMNIA Assessment and Plan - Plan 33 y/o female who is POD# 1 s/p CXN. -Gestational diabetes previously on insulin antepartum. Will discontinue BG monitor due to normal BGs and change diet to regular. -Continue routine care. -Motrin PRN pain. Pt does not want any opioid medication for pain. -Encouraged OOB. Advised pelvic rest for 6 wks. Will need a f/u appt. in 1 wk for incision check. -Re: ctrl, she would like to not be on any form. -D/c in 1-2 more days. melonie Moore
[2018-03-10] MEDS ORDERED: Measles/Mumps/Rubella Vaccine Inj 0.5 ML Vial SQ ONE (16:00)
[2018-03-10] MEDS ORDERED: Diphtheria/Tetanus/Pertussis Vaccine Inj 0.5 ML Syringe IM ONE (16:00)
--- NOTE | 2018-03-11 09:14 | P.PNOB ---
Subjective Interval history: Patient is a 33-year-old delivered at 39 weeks and 5 days. Patient is day 2 after . Patient's pain is well-controlled. Patient reports eating and drinking without any nausea or vomiting. Patient reports minimal bleeding. Patient has passed gas but no bowel movements. Patient is walking without lower extremity pain or shortness of breath. Patient reports desire for no contraception and plans on breast-feeding. Objective Vital Signs/I&O: Vital Signs 03/10/18 11:25 03/10/18 21:00 Temperature 98.4 F 97.8 F Pulse Rate 101 H 103 H Respiratory Rate 18 20 Blood Pressure 117/78 126/78 Result Diagrams: 03/10/18 05:50 03/10/18 05:50 Objective Remarks: GENERAL: Well-nourished, well-developed patient. CARDIOVASCULAR: Regular rate and rhythm without murmurs, gallops, or rubs. RESPIRATORY: Breath sounds equal bilaterally. No accessory muscle use. ABDOMEN/GI: Abdomen soft, non-tender, bowel sounds present. Incision: Clean, dry and intact. Fundus: Firm, non-tender at umbilicus. GENITOURINARY: Light to moderate bleeding. EXTREMITIES: No cyanosis or edema, non-tender, without signs of DVT. Medications and IVs: Active Medications Citric Acid/Sodium Citrate (Sodium Citrate/Citric Acid Liq) 30 ml PO [employer] [facility] Stop: 03/13/18 01:29 Dextrose (D50w Vial) 50 ml IV.PUSH UNSCH PRN PRN Reason: PER HYPOGLYCEMIA PROTOCOL Glucagon (Glucagon Inj) 1 mg OTHER PRN PRN PRN Reason: for Hypoglycemia Protocol Oxytocin (Pitocin 30 Units/Ns 500 Ml Premix) 30 units in 500 mls @ 100 mls/hr IV.SIG UNSCH PRN PRN Reason: Heavy bleeding Ibuprofen (Motrin) 800 mg PO Q6H PRN PRN Reason: PAIN 1-2 AND/OR FEVER >101F Last Admin: 03/11/18 05:13 Dose: 800 mg Melatonin (Melatonin) 5 mg PO HS PRN PRN Reason: SLEEP Last Admin: 03/07/18 22:36 Dose: 5 mg Oxycodone/Acetaminophen (Percocet 5/325 Mg) 1 tab PO Q4H PRN PRN Reason: PAIN SCALE 3 TO 5 Oxycodone/Acetaminophen (Percocet 5/325 Mg) 2 tab PO Q4H PRN PRN Reason: PAIN SCALE 6 TO 10 Sodium Chloride (Ns Flush) 2 ml IV.FLUSH BID [facility] Last Admin: 03/11/18 00:47 Dose: Not Given Sodium Chloride (Ns Flush) 2 ml IV.FLUSH PRN PRN PRN Reason: FLUSH AFTER USING IV ACCESS Sodium Chloride (Ns Flush) 2 ml IV.FLUSH BID [facility] Last Admin: 03/11/18 00:47 Dose: Not Given Sodium Chloride (Ns Flush) 2 ml IV.FLUSH PRN PRN PRN Reason: FLUSH AFTER USING IV ACCESS Zolpidem Tartrate (Ambien) 5 mg PO HS PRN PRN Reason: INSOMNIA Assessment and Plan - Diagnosis (1) Status post section routine follow-up Code(s): Z39.2 - Encounter for routine follow-up; Z98.891 - History of uterine scar from previous surgery Status: Acute - Plan 33 y/o female who is POD# 2 s/p CXN. -Gestational diabetes previously on insulin antepartum. Will discontinue BG monitor due to normal BGs and change diet to regular. -Continue routine care. -Motrin PRN pain. Pt does not want any opioid medication for pain. -Encouraged OOB. Advised pelvic rest for 6 wks. Will need a f/u appt. in 1 wk for incision check. -Re: ctrl, she would like to not be on any form. -D/c in [address] Beavers - Attending Attestation The exam, history, and the medical decision-making described in the above note were completed with the assistance of the resident physician. I reviewed and agree with the findings presented. I attest that I had a [id number] encounter with the patient on the same day, and personally performed and documented my assessment and findings in the medical record.
[2018-03-11] MEDS ORDERED: Senna/Docusate Sodium 8.6/50 MG Tablet PO SCH (21:00)
[2018-03-11] MEDS: Melatonin 5 MG Tablet PO PRN (21:21)
--- NOTE | 2018-03-12 08:45 | P.PNOB ---
Subjective Interval history: Patient is a 33-year-old delivered at 39 weeks and 5 days. Patient is day 3 after . Patient's pain is well-controlled. Patient reports eating and drinking without any nausea or vomiting. Patient reports minimal bleeding. Patient has passed gas but no bowel movements. Patient is walking without lower extremity pain or shortness of breath. Patient is not interested in contraception Objective Vital Signs/I&O: Vital Signs 03/11/18 09:00 03/11/18 20:00 Temperature 98.0 F 98.8 F Pulse Rate 95 H 97 H Respiratory Rate 20 18 Blood Pressure 135/80 123/85 Result Diagrams: 03/10/18 05:50 03/10/18 05:50 Objective Remarks: GENERAL: Well-nourished, well-developed patient. CARDIOVASCULAR: Regular rate and rhythm without murmurs, gallops, or rubs. RESPIRATORY: Breath sounds equal bilaterally. No accessory muscle use. ABDOMEN/GI: Abdomen soft, non-tender, bowel sounds present. Incision: Clean, dry and intact. Fundus: Firm, non-tender at umbilicus. GENITOURINARY: Light to moderate bleeding. EXTREMITIES: No cyanosis or edema, non-tender, without signs of DVT. Medications and IVs: Active Medications Citric Acid/Sodium Citrate (Sodium Citrate/Citric Acid Liq) 30 ml PO [employer] [facility] Stop: 03/13/18 01:29 Dextrose (D50w Vial) 50 ml IV.PUSH UNSCH PRN PRN Reason: PER HYPOGLYCEMIA PROTOCOL Glucagon (Glucagon Inj) 1 mg OTHER PRN PRN PRN Reason: for Hypoglycemia Protocol Oxytocin (Pitocin 30 Units/Ns 500 Ml Premix) 30 units in 500 mls @ 100 mls/hr IV.SIG UNSCH PRN PRN Reason: Heavy bleeding Ibuprofen (Motrin) 800 mg PO Q6H PRN PRN Reason: PAIN 1-2 AND/OR FEVER >101F Last Admin: 03/12/18 03:45 Dose: 800 mg Melatonin (Melatonin) 5 mg PO HS PRN PRN Reason: SLEEP Last Admin: 03/11/18 21:21 Dose: 5 mg Oxycodone/Acetaminophen (Percocet 5/325 Mg) 1 tab PO Q4H PRN PRN Reason: PAIN SCALE 3 TO 5 Oxycodone/Acetaminophen (Percocet 5/325 Mg) 2 tab PO Q4H PRN PRN Reason: PAIN SCALE 6 TO 10 Senna/Docusate Sodium (Dilcia-Colace) 2 tab PO BID [facility] Last Admin: 03/11/18 21:21 Dose: 2 tab Sodium Chloride (Ns Flush) 2 ml IV.FLUSH BID [facility] Last Admin: 03/11/18 21:20 Dose: Not Given Sodium Chloride (Ns Flush) 2 ml IV.FLUSH PRN PRN PRN Reason: FLUSH AFTER USING IV ACCESS Sodium Chloride (Ns Flush) 2 ml IV.FLUSH BID [facility] Last Admin: 03/11/18 21:20 Dose: Not Given Sodium Chloride (Ns Flush) 2 ml IV.FLUSH PRN PRN PRN Reason: FLUSH AFTER USING IV ACCESS Zolpidem Tartrate (Ambien) 5 mg PO HS PRN PRN Reason: INSOMNIA Assessment and Plan - Diagnosis (1) Status post section routine follow-up Code(s): Z39.2 - Encounter for routine follow-up; Z98.891 - History of uterine scar from previous surgery Status: Acute - Plan 33 y/o female who is POD# 3 s/p CXN. -Gestational diabetes previously on insulin antepartum. Will discontinue BG monitor due to normal BGs and change diet to regular. -Continue routine care. -Motrin PRN pain. Pt does not want any opioid medication for pain. -Encouraged OOB. Advised pelvic rest for 6 wks. Will need a f/u appt. in 1 wk for incision check. -Re: ctrl, she would like to not be on any form. -D/c today
== END 2018-03-12 13:07 | disposition home or self-care (01) ==
LOC: H2E 16:00 → H1EA 03-09 05:45
PROVIDERS: ADMIT Obstetrics & Gynecology; ATTEND Obstetrics & Gynecology